=== PATIENT | male | born 1970 | race Caucasian/White ===

== ENCOUNTER 2016-08-20 14:46 | Emergency (ER) | payer SELFPAY ==
[~2016-08-20] VITALS: Ht 182.9 cm; Wt 105.0 kg
[2016-08-20 15:10] VITALS: BP 141/81; PULSE 94; TEMP 98.1
[2016-08-20] MEDS ORDERED: ZEBETA 5MG5 MG PO ×2 (15:13→18:35)
== END 2016-08-20 18:40 | disposition home or self-care (01) ==
LOC: COL.ER 14:46
DX: I10 Essential (primary) hypertension (principal); F17.210 Nicotine dependence, cigarettes, uncomplicated; Z86.79 Personal history of other diseases of the circulatory system; Z76.0 Encounter for issue of repeat prescription